=== PATIENT | female | born 1990 | race Two or more races ===

== ENCOUNTER 2017-09-25 20:54 | Emergency (ER) | payer OTHER ==
[~2017-09-25] VITALS: Ht 154.9 cm; Wt 69.4 kg
[~2017-09-25 20:54] MED LIST: PNV1TABL11
[2017-09-25 20:58] VITALS: BP 150/91
[2017-09-25] MEDS ORDERED: DIPH,PERTUSS(ACELL),TET VAC/PF 0.5 ML IM-VACC ONE ×2 (21:30→21:31)
== END 2017-09-25 22:03 | disposition home or self-care (01) ==
LOC: ED 22:02
DX: S20.212A Contusion of left front wall of thorax, initial encounter (principal); S00.81XA Abrasion of other part of head, initial encounter; S00.91XA Abrasion of unspecified part of head, initial encounter; Y04.0XXA Assault by unarmed brawl or fight, initial encounter; Y93.89 Activity, other specified; Y92.098 Other place in other non-institutional residence as the place of occurrence of the external cause; Y99.8 Other external cause status
CPT/HCPCS: 71046; 90715; 96372; 99284